=== PATIENT | male | born 1950 | race Caucasian/White ===

== ENCOUNTER 2024-05-28 06:34 | Emergency (ER) | payer BC, MEDICARE ==
[2024-05-28] MEDS: Bacitracin Oint 1 GM U/D Packet TOP ONE (08:38)
[2024-05-28] MEDS: Diphtheria,Pertussis(Acell),Tetanus Vaccine 0.5 ML Syringe IM ONE (08:38)
[2024-05-28] MEDS: Lidocaine 1% with EPINEPHrine 1:100,000 20 ML MDV INJECT ONE (08:38)
== END 2024-05-28 08:43 | disposition home or self-care (01) ==
LOC: JP.ED 06:34
DX: S01.81XA Laceration without foreign body of other part of head, initial encounter (principal); I10 Essential (primary) hypertension; E78.00 Pure hypercholesterolemia, unspecified; Z23 Encounter for immunization; Z90.49 Acquired absence of other specified parts of digestive tract; Z79.899 Other long term (current) drug therapy; W10.9XXA Fall (on) (from) unspecified stairs and steps, initial encounter
CPT/HCPCS: 12013; 70450; 72125; 76377; 90471; 90715; 99283; 99283-25